=== PATIENT | female | born 1990 | race Two or more races ===

== ENCOUNTER 2018-08-19 22:39 | Emergency (ER) | payer MEDICAID ==
[~2018-08-19] VITALS: Ht 157.5 cm; Wt 65.8 kg
--- NOTE | 2018-08-19 23:05 | NUR ---
PT BIBFAMILY COMPLAINING OF NASAL CONGESTION/ FLU LIKE SYMPTOMES X 2 DAYS. PT STATES SHE IS UNABLE TO BREATHE TODAY W/ CHEST TIGHTNESS. PT RESPIRATIONS EVEN AND UNLABORED. PT AXO4. 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
[2018-08-19] MEDS ORDERED: AMOX/CLAVULANATE 875 MG TABLET ONE (23:48)
[2018-08-19] MEDS ORDERED: PSEUDOEPHEDRINE HCL 30 MG TABLET ONE (23:48)
[2018-08-19] MEDS: PSEUDOEPHEDRINE HCL 30 MG TABLET PO ONE (23:54)
[2018-08-19] MEDS: AMOX/CLAVULANATE 875 MG TABLET PO ONE (23:54)
--- NOTE | 2018-08-20 00:06 | NUR ---
XRAY AT BEDSIDE.
[2018-08-20 00:47] VITALS: BP 124/77
--- NOTE | 2018-08-20 00:47 | NUR ---
Patient discharged to home in stable condition. Written and verbal after care instructions given. Patient verbalizes understanding of instruction.
== END 2018-08-20 00:48 | disposition home or self-care (01) ==
LOC: ER 22:47
DX: J01.00 Acute maxillary sinusitis, unspecified (principal); J45.909 Unspecified asthma, uncomplicated
CPT/HCPCS: 71046; 84703-TC